=== PATIENT | female | born 1955 | race Caucasian/White ===

== ENCOUNTER 2021-07-16 10:00 | Day surgery (SDC) | payer MEDICARE, BC ==
[~2021-07-16 10:00] MED LIST: Lactated Ringers 1,000 ML IV SCH; Sodium Chloride 0.9% 10 ML Syringe FLUSH PRN
[2021-07-16] MEDS ORDERED: Propofol 200 MG/20 ML SDV ONE (10:24)
[2021-07-16] MEDS ORDERED: fentaNYL 100 MCG/2 ML SDV ONE (10:25)
[2021-07-16 12:10] VITALS: BP 123/53; PULSE 50
== END 2021-07-16 13:10 | disposition home or self-care (01) ==
LOC: VM.SDS 10:00
PROVIDERS: ATTEND Family Medicine
DX: Z12.11 Encounter for screening for malignant neoplasm of colon (principal); K63.5 Polyp of colon; I10 Essential (primary) hypertension; E66.9 Obesity, unspecified; H61.23 Impacted cerumen, bilateral; E78.00 Pure hypercholesterolemia, unspecified; Z98.890 Other specified postprocedural states; Z80.0 Family history of malignant neoplasm of digestive organs; Z79.899 Other long term (current) drug therapy; Z68.34 Body mass index [BMI] 34.0-34.9, adult; Z79.82 Long term (current) use of aspirin
CPT/HCPCS: 00811; 88305; J2704; J3010; J7120